=== PATIENT | female | born 1945 | race Caucasian/White ===

== ENCOUNTER → 2017-06-07 | Outpatient (CLI) | payer BC, MEDICARE | LOC: ZCOL.LAB 12:08 | DX: Z01.812 Encounter for preprocedural laboratory examination (principal); Z86.14 Personal history of Methicillin resistant Staphylococcus aureus infection ==

== ENCOUNTER → 2017-09-18 | Outpatient (REF) | LOC: ZLAB.WCH 18:13 | DX: Z01.89 Encounter for other specified special examinations (principal) ==

== ENCOUNTER → 2017-10-28 | Outpatient (REF) ==
[2017-10-28 15:18] LABS: THYROID STIMULATING HORMONE 1.88 uIU/mL (0.465-4.680)
== END ==
LOC: ZLAB.WCH 14:22
PROVIDERS: Family Medicine
DX: Z01.89 Encounter for other specified special examinations (principal)

== ENCOUNTER → 2018-04-23 | Outpatient (REF) | LOC: ZLAB.WCH 15:43 | DX: Z01.89 Encounter for other specified special examinations (principal) ==

== ENCOUNTER → 2018-10-31 | Outpatient (REF) | LOC: ZLAB.WCH 19:47 | DX: Z01.89 Encounter for other specified special examinations (principal) ==

== ENCOUNTER → 2018-11-26 | Outpatient (REF) | LOC: ZLAB.WCH 08:30 | DX: Z01.89 Encounter for other specified special examinations (principal) ==

== ENCOUNTER → 2019-03-10 | Outpatient (REF) | LOC: ZLAB.WCH 14:12 | DX: Z01.89 Encounter for other specified special examinations (principal) ==